=== PATIENT | male | born 2000 | race Caucasian/White ===

== ENCOUNTER 2022-06-05 17:49 | Emergency (ER) | payer BC, SELFPAY ==
--- NOTE | ~2022-06-05 | XR_ITS ---
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 RESULT: Lines, tubes, and devices: None. Lungs and pleura: Clear. Cardiomediastinal silhouette: Normal. Other: No acute osseous or upper abdominal finding. IMPRESSION: No acute cardiopulmonary process. Reviewed, dictated and finalized at location K. MOGRAPH CHIEF
[2022-06-05 17:59] VITALS: BP 175/87; PULSE 102; RESP 18; TEMP 36.6; O2SAT 100
--- NOTE | 2022-06-05 18:02 | ECG_ITS ---
Measurements Intervals [place] Rate: 81 P: 66 AK: 164 QRS: 5 QRSD: 89 T: 16 QT: 349 QTc: 407 Interpretive Statements SINUS RHYTHM WITH SINUS ARRHYTHMIA DELAYED PRECORDIAL R/S TRANSITION BORDERLINE T WAVE ABNORMALITY- INFERIOR LEADS BORDERLINE ECG NO PREVIOUS ECG AVAILABLE FOR COMPARISON Electronically Signed On 06-06-2022 6:34:22 [employer] HOU[employer] by Austyn Feldman D.O.
[2022-06-05 18:44] LABS: Basophils Percent Auto 0.4 % (0.2-1.2); Eosinophils Absolute Auto 0.1 K/mm3 (0-0.3); Eosinophils Percent Auto 0.9 % (0-4.4); Hematocrit 47.6 % (42.0-52.0); Hemoglobin 15.6 g/dL (14.0-18.0); Immature Granulocyte Absolute 0.02 K/mm3 (0.00-0.031); Immature Granulocyte Percent A 0.3 % (0-0.5); Lymphocytes Absolute Auto 1.87 K/mm3 (0.9-3.2); Lymphocytes Percent Auto 27.2 % (18.3-44.2); Mean Corpuscular HGB Conc 32.8 g/dl (32-36); Mean Corpuscular Hemoglobin 30.2 pg (26-34); Mean Corpuscular Volume 92.2 fl (80-100); Mean Platelet Volume 10.9 fl (7.4-10.4); Monocytes Absolute Auto 0.4 K/mm3 (0.1-0.6); Neutrophils Absolute Auto 4.5 K/mm3 (1.3-6.7); Neutrophils Percent Auto 65.2 % (45.5-73.1); Platelet Count Result 172 k/mm3 (150-375); Red Blood Count 5.16 M/mm3 (4.6-6.20); Red Cell Distribution Width 12.6 % (11.5-14.5); White Blood Count 6.9 K/mm3 (4.5-10.0)
[2022-06-05 18:56] LABS: Partial Thromboplastin Time 30.8 SECONDS (22.3-36.8); Prothrombin Time 13.1 Seconds (11.1-14.7)
[2022-06-05 18:57] LABS: Alanine Aminotransferase 15 U/L (6-50); Albumin Level 4.6 g/dL (3.5-5.1); Alkaline Phosphatase 66 U/L (38-126); Anion Gap 8 mmol/L (8-16); Aspartate Amino Transferase 17 U/L (17-59); Bilirubin,Total 0.6 mg/dL (0.2-1.3); Blood Urea Nitrogen 11 mg/dL (9-20); Calcium 9.4 mg/dL (8.4-10.2); Carbon Dioxide 30 mmol/L (22-30); Chloride 105 mmol/L (98-107); Estimated CRCL calculation 164 ml/min; Estimated Glomerular Filt Rate > 60; Glucose 105 mg/dL (65-110); Lipase 69 U/L (23-300); Potassium 4.1 mmol/L (3.4-5.0); Sodium 143 mmol/L (137-145)
[2022-06-05 19:09] LABS: Troponin I < 0.012 ng/mL (0.000-0.034)
[2022-06-05 20:18] VITALS: BP 147/79; PULSE 66; RESP 18; TEMP 36.7; O2SAT 100
--- NOTE | 2022-06-05 21:52 | ED.CHESTPAIN ---
HPI - Chest Pain General Chief Complaint: Chest Pain <QUINTON Agosto Last Filed: 06/06/22 03:03> Stated Complaint: chest pain <QUINTON Agosto Last Filed: 06/06/22 03:03> Time Seen by Provider: 06/05/22 21:49 <QUINTON Agosto Last Filed: 06/06/22 03:03> History of Present Illness HPI narrative: 21-year-old male here for evaluation of epigastric abdominal/lower chest pain over the past several hours. Patient states the pain came on while he was at rest, described as a sharp and stabbing but also burning sensation at times. Reports some difficulty breathing associated with the pain and states that the pain made him very anxious and he subsequently had a panic attack. He denies any leg swelling, cough, congestion, fevers or chills, nausea or vomiting, diarrhea or constipation. He has not taken any medicine for his pain. <QUINTON Agosto Last Filed: 06/06/22 03:03> Related Data Allergies/Adverse Reactions: Allergies Allergy/AdvReac Type Severity Reaction Status Date / Time No Known Allergies Allergy Verified 01/10/16 10:51 <QUINTON Agosto Last Filed: 06/06/22 03:03> Review of Systems Review of Systems: Gen.: Denies fevers or chills Eyes: Denies eye pain or visual change ENT: Denies congestion Respiratory: Denies shortness of breath or cough CV: Reports chest pain GI: Denies abdominal pain nausea, emesis or diarrhea denies burning, urgency, frequency or hematuria Musculoskeletal: Denies back pain or muscle pain Neuro: Denies numbness, tingling, weakness or focal weakness Skin: Denies rash Except as documented, all other systems reviewed and negative <QUINTON Agosto Last Filed: 06/06/22 03:03> Exam Narrative: APPEARANCE: Well appearing, no pain in distress, well-nourished. Head: Normocephalic and atraumatic. EYES: PERRLA/EOMI, conjunctivae clear NOSE: No nasal drainage EARS: External ear normal in appearance THROAT: Oropharynx is clear. Mucous membranes are moist. NECK: Supple. No adenopathy, no masses. RESPIRATORY: Airway patent, respirations nonlabored. Clear to auscultation bilaterally, no rales, rhonchi, wheezing. CARDIOVASCULAR: Regular rate and rhythm without murmurs, rubs, or gallops. ABDOMINAL: Normoactive bowel sounds. Soft, nontender, nondistended. No rebound tenderness or guarding. MUSCULOSKELETAL: Extremities are warm and well-perfused. Moves all extremities well. No edema. NEURO: Normal speech. No focal neurologic deficits. SKIN: Skin is warm and dry. No rashes. PSYCHIATRIC: Normal affect/mood.. 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 I performed all aspects of the MDM as documented w/ the following additions: 21-year-old presenting with epigastric and chest discomfort. Extensive workup was ordered which was negative. Patient's symptoms improved with Maalox. Discharged. All questions answered. Patient in agreement w/ disposition. <Akbar Zhu MD - Last Filed: 06/07/22 03:33> Vital Signs Vital signs: Vital Signs Temperature 97.9 F 06/05/22 17:59 Pulse Rate 102 H 06/05/22 17:59 Respiratory Rate 18 06/05/22 17:59 Blood Pressure 175/87 H 06/05/22 17:59 Pulse Oximetry 100 06/05/22 17:59 Oxygen Delivery Room Air 06/05/22 17:59 Temperature 98.1 F 06/05/22 20:18 Pulse Rate 102 H 06/05/22 23:48 Respiratory Rate 16 06/05/22 23:48 Blood Pressure 132/87 06/05/22 23:48 Pulse Oximetry 99 06/05/22 23:48 Oxygen Delivery Room Air 06/05/22 21:40 <Lynette Galarza PA-C - Last Filed: 06/06/22 03:03> Vital Signs Temperature 97.9 F 06/05/22 17:59 Pulse Rate 102 H 06/05/22 17:59 Respiratory Rate 18 06/05/22 17:59 Blood Pressure 175/87 H 03/08/23 17:59 Pulse Oximetry 100 06/05/22 17:59 Oxygen Delivery
[2022-06-05] MEDS: MAG HYDROX/AL HYDROX/SIMETH 30 ML UDC PO (22:24)
[2022-06-05 22:57] VITALS: BP 131/77; PULSE 67; RESP 20; O2SAT 99
[2022-06-05 22:57] LABS: Troponin I < 0.012 ng/mL (0.000-0.034)
[2022-06-05 22:58] LABS: D Dimer 0.31 ug/mL (<0.48)
[2022-06-05 23:04] LABS: Influenza A QL RT-PCR Negative (Negative); Influenza B QL RT-PCR Negative (Negative); SARS-CoV-2 RNA PCR Negative
[2022-06-05 23:48] VITALS: BP 132/87; PULSE 102; RESP 16; O2SAT 99
== END 2022-06-05 23:49 | disposition home or self-care (01) ==
PROVIDERS: Emergency Medicine; Emergency Provider Physician Assistant; PCP Pediatrics
DX: K21.9 Gastro-esophageal reflux disease without esophagitis (principal); Z20.822 Contact with and (suspected) exposure to COVID-19
CPT/HCPCS: 36415; 71046; 80053; 83690; 84484; 85025; 85380; 85610; 85730; 87636; 93005; 99284; A9270